=== PATIENT | female | born 1975 | race Caucasian/White ===

== ENCOUNTER 2016-08-25 00:22 | Emergency (ER) | payer SELFPAY ==
--- NOTE | 2016-09-01 06:01 | ER ---
ADMIT: 08/25/2016 RM/LOC: ER [facility] MR#: [id number] [address] [id number] KEYLA CROCKETTRIE [place] [address] [place] [address] Emergency Room Report SEX: F AGE: 40 : 1975 DATE: 08/25/2016 The patient is a 40-year-old female, who cut her left wrist at home with base, sustained 3 cm volar aspect superficial laceration wound. Anesthetized with Xylocaine 1%, thoroughly scrubbed with Hibiclens, irrigated, Betadine prep, closed with 4-0 Prolene x3, bacitracin, and Band-Aid. Advised in wound care. Follow up Mario Gibbons in 7 to 10 days for suture removal. Royer Rader MD/ jesus JOB #: [id number] CC: Royer Rader MD, Attending Physician Mario Gibbons MD, Family Physician Mario Gibbons MD
== END 2016-08-25 01:14 | disposition home or self-care (01) ==
LOC: ER 00:22
PROC: 0HQEXZZ Repair Left Lower Arm Skin, External Approach (ICD-10-PCS; principal; 2016-08-25)
DX: S61.512A Laceration without foreign body of left wrist, initial encounter (principal); W45.8XXA Other foreign body or object entering through skin, initial encounter; Y92.009 Unspecified place in unspecified non-institutional (private) residence as the place of occurrence of the external cause